=== PATIENT | male | born 1960 | race Caucasian/White ===

== ENCOUNTER → 2018-05-13 | Day surgery (SDC) | payer OTHER ==
[~2018-05-13] MED LIST: AMLODIPINE BESY10 MG PO; ASPIR 8181 MG; BENAZEPRIL HCL10 MG PO; DEXAMETHASONE SOD PHOS INJ 4 MG/ML VIAL ONE; FENTANYL CITRATE/PF 100MCG/2 ML INJ ONE; IOPAMIDOL 610MG/1ML 300 MG/ML VIAL IV ONE; LEVOFLOXACIN 500MG/D5W 100ML 100 ML IV ONE; LIDOCAINE HCL 2% LOCAL INJ 5 ML SDV VIAL INJ ONE; MIDAZOLAM HCL 2 MG/2 ML VIAL ONE; PROPOFOL IV EMULSION 10 MG/ML 20 ML VIAL ONE; SEVOFLURANE INHAL SOLN 250 ML PEN BTL ONE; TAMSULOSIN HCL0.4 MG
--- OUTSIDE RECORDS SUMMARY | 2018-05-13 07:23 | XMS REPORT | Clinical Summary ---
Author Author [facility] Address Unknown Phone Unavailable Care Team Providers Care Worm Raiser Name Role Phone Ja Willard MD PCP Allergies No Known Allergies Current Medications Prescription Sig. Disp. Refills Start End Date Status Date naproxen (NAPROSYN) 500 Take 1 tablet (500 mg 60 tablet 0 04/24/05/24/20 Active MG tablet total) by mouth 2 (two) 18 18 times a day with meals for 30 days. ondansetron (ZOFRAN) 4 MG Take 1 tablet (4 mg 120 tablet 0 04/24/20 05/24/20 Active tablet total) by mouth every 6 18 18 (six) hours for 30 days. traMADol (ULTRAM) 50 mg Take 1 tablet (50 mg 15 tablet 0 04/24/ tablet total) by mouth every 8 18 18 (eight) hours as needed for severe pain for up to 5 days. Active Problems Not on file Encounters Date Type Specialty Care Team Description 05/11/2018 [facility] Radiology Conrado Hurt, Calculus of kidney; Encounter Calculus of ureter 05/11/2018 Ancillary Radiology Conrado Hurt, Calculus of kidney; Orders Calculus of ureter 05/06/2018 Orders Only Procedural Cardiology Cristinao Kate Preop testing (Primary Dx) 04/30/2018 Hospital Radiology Conrado Hurt, Calculus of ureter; Encounter Calculus of kidney 04/30/2018 Ancillary Radiology Conrado Hurt, Calculus of ureter; Orders Calculus of kidney 04/24/2018 Emergency Emergency Medicine Isaias Oh Nephrolithiasis (Primary MD Leonid Dx) 10/17/2017 Hospital Radiology Conrado Hurt, Abdominal pain, left Encounter lower quadrant; Calculus of kidney; Calculus of ureter 10/17/2017 Ancillary Radiology Conrado Hurt, Abdominal pain , left Orders lower quadrant; Calculus of kidney; Calculus of ureter 10/13/2017 Hospital Radiology Conrado Hurt, Uric acid Encounter MD nephrolithiasis; Calculus of ureter 10/13/2017 Ancillary Radiology Conrado Hurt, Uric acid Orders nephrolithiasis; Calculus of ureter 09/11/2017 Hospital Radiology Conrado Hurt, Calculus of kidney; Encounter Calculus of ureter 09/11/2017 Ancillary Radiology Conrado Hurt, Calculus of kidney; Orders Calculus of ureter 08/25/2017 [facility] Radiology Conrado Hurt, Calculus of ureter Encounter MD 08/25/2017 Ancillary Radiology Conrado Hurt, Calculus of ureter Orders MD after 05/12/2017 Social History Tobacco Use Types Packs/Day Years Used Date Former Smoker Smokeless Tobacco: Former User Alcohol Use Drinks/Week oz/Week Comments Yes Sex Assigned at Date Recorded Not on file Last Filed Vital Signs Vital Sign Reading Time Taken Blood Pressure 121/75 04/24/2018 1:29 PM CDT Pulse 68 04/24/2018 1:29 PM CDT Temperature 37.2 C (99 F) 04/24/2018 10:52 AM CDT Respiratory Rate 18 04/24/2018 1:29 PM CDT Oxygen Saturation 96% 04/24/2018 1:29 PM CDT Inhaled Oxygen - - Concentration Weight 86.2 kg (190 lb) 04/24/2018 10:52 AM CDT Height 175.3 cm (5' 9") 04/24/2018 10:52 AM CDT Body Mass Index 28.06 04/24/2018 10:52 AM CDT Plan of Treatment Health Maintenance Due Date Last Done Comments COLON CANCER SCREENING 2009 SHINGRIX VACCINE (#1) 2009 INFLUENZA VACCINE 07/01/2018 Results * XR Abdomen 1 Vw (05/11/2018 11:05 AM) Only the most recent of 6 results within the time period is included. Specimen Performing Laboratory [facility] [address] [place] [address] Narrative XR ABDOMEN 1 VW CLINICAL INDICATION:N20.0 Calculus of kidney, N20.1 Calculus of ureter COMPARISON:April 30, 2018 IMPRESSION: The bowel gas pattern is normal. A previously described stone in the left ureter at the L3 level on CT of March is no longer definitively visualized. There are small stones overlying the left kidney measuring up to 5 mm and a questionable stone in the left kidney measuring 4 to 5 mm. Again identified are calcific densities in the pelvis, 2 of which have been previously described as bladder stones and the others likely relating to phleboliths. [id number] Procedure Note Interface, Radiology Results Incoming - 05/11/2018 2:15 PM CDT XR ABDOMEN 1 VW CLINICAL INDICATION: N20.0 Calculus of kidney, N20.1 Calculus of ureter COMPARISON: April 30, 2018 IMPRESSION: The bowel gas pattern is normal. A previously described stone in the left ureter at the L3 level on CT of March is no longer definitively visualized. There are small stones overlying the left kidney measuring up to 5 mm and a questionable stone in the left kidney measuring 4 to 5 mm. Again identified are calcific densities in the pelvis, 2 of which have been previously described as bladder stones and the others likely relating to phleboliths. [id number] * ECG 12 lead (05/06/2018 11:48 AM) Component Value Ref Range Ventricular rate 62 Atrial rate 62 SD interval 138 QRSD interval 82 QT interval 408 QTC interval 414 P axis 1 55 QRS axis 1 30 T wave axis 32 EKG impression Normal sinus rhythm-Possible Left atrial enlargement-Borderline ECG-No previous ECGs available- Specimen Performing Laboratory [facility] [address] [place] [address] * CT Renal Stone Protocol (04/24/2018 12:12 PM) Specimen Performing Laboratory [facility] [address] [place] [address] Narrative EXAMINATION:CT RENAL STONE PROTOCOL CLINICAL HISTORY:kidney stone TECHNIQUE:Multiple axial images of the abdomen and pelvis were obtained without intravenous administration of iodinated contrast. Sagittal and coronal computerized reformatted images were also obtained. The lack of intravenous contrast reduces the sensitivity of detecting solid organ disease. COMPARISON:KUB from 10/17/2017 FINDINGS: 1.There is an obstructing, 0.6 x 0.6 cm stone within the proximal left ureter (image 95, series 2), resulting in moderate left-sided hydronephrosis. Left-sided perinephric stranding is also seen. No perinephric fluid collections. No air is seen within the collecting system. Multiple other nonobstructing stones are seen within the mid and superior pole calyces of the left kidney. The largest nonobstructing stone measures 0.6 x 0.5 cm within the midpole. The distal left ureter is unremarkable. 2.The bladder is decompressed. 2 other calcifications are seen within the dependent portions the bladder likely representing stones. The largest measures 0.4 cm and is located on the right side of the bladder (image 163, series 2). 3.The right kidney is normal in morphology. The right ureter is unremarkable. No right-sided hydronephrosis. There is a nonobstructing renal stone within the right collecting system within a midpole calyx measuring 0.6 cm in size. 4.The prostate is unremarkable and contains dystrophic calcification. The prostate measures 4.2 x 4.9 cm. 5.The lung bases are clear. The cardiac size is normal. No pericardial effusion. Mild calcification of the aortic valve leaflets is noted. 6.Noncontrast evaluation of the liver demonstrates punctate foci of decreased attenuation. The largest is within the right lobe the liver measuring 0.9 cm, and likely represent cysts. No intrahepatic biliary duct dilatation. 7.A layering gallstone is seen within the gallbladder with some layering sludge. No pericholecystic fluid or gallbladder wall thickening. The common bile duct is unremarkable. 8.The pancreas, spleen, and adrenals are unremarkable. 9.No dilated loops of large or small bowel. No intraperitoneal free air or free fluid. Diverticulosis is seen within the sigmoid colon without evidence of diverticulitis. The appendix is normal. 10.Nonspecific groundglass opacity is seen within the mesenteric fat with some associated nonspecific, likely reactive lymph nodes. Findings most likely represent mesenteric panniculitis or edema. 11.The abdominal aorta is normal in caliber. 12.No abdominal or pelvic lymphadenopathy. 13.The bones are within normal limits. IMPRESSION: 1.Obstructing 0.6 cm renal stone within the proximal left ureter resulting in moderate left-sided hydronephrosis. 2.Other incidental findings as above. [facility]-[id number] Procedure Note Hm Interface, Radiology Results Incoming - 04/24/2018 12:32 PM CDT EXAMINATION: CT RENAL STONE PROTOCOL CLINICAL HISTORY: kidney stone TECHNIQUE: Multiple axial images of the abdomen and pelvis were obtained without intravenous administration of iodinated contrast. Sagittal and coronal computerized reformatted images were also obtained. The lack of intravenous contrast reduces the sensitivity of detecting solid organ disease. COMPARISON: KUB from 10/17/2017 FINDINGS: 1. There is an obstructing, 0.6 x 0.6 cm stone within the proximal left ureter (image 95, series 2), resulting in moderate left-sided hydronephrosis. Left-sided perinephric stranding is also seen. No perinephric fluid collections. No air is seen within the collecting system. Multiple other nonobstructing stones are seen within the mid and superior pole calyces of the left kidney. The largest nonobstructing stone measures 0.6 x 0.5 cm within the midpole. The distal left ureter is unremarkable. 2. The bladder is decompressed. 2 other calcifications are seen within the dependent portions the bladder likely representing stones. The largest measures 0.4 cm and is located on the right side of the bladder (image 163, series 2). 3. The right kidney is normal in morphology. The right ureter is unremarkable. No right-sided hydronephrosis. There is a nonobstructing renal stone within the right collecting system within a midpole calyx measuring 0.6 cm in size. 4. The prostate is unremarkable and contains dystrophic calcification. The prostate measures 4.2 x 4.9 cm. 5. The lung bases are clear. The cardiac size is normal. No pericardial effusion. Mild calcification of the aortic valve leaflets is noted. 6. Noncontrast evaluation of the liver demonstrates punctate foci of decreased attenuation. The largest is within the right lobe the liver measuring 0.9 cm, and likely represent cysts. No intrahepatic biliary duct dilatation. 7. A layering gallstone is seen within the gallbladder with some layering sludge. No pericholecystic fluid or gallbladder wall thickening. The common bile duct is unremarkable. 8. The pancreas, spleen, and adrenals are unremarkable. 9. No dilated loops of large or small bowel. No intraperitoneal free air or free fluid. Diverticulosis is seen within the sigmoid colon without evidence of diverticulitis. The appendix is normal. 10. Nonspecific groundglass opacity is seen within the mesenteric fat with some associated nonspecific, likely reactive lymph nodes. Findings most likely represent mesenteric panniculitis or edema. 11. The abdominal aorta is normal in caliber. 12. No abdominal or pelvic lymphadenopathy. 13. The bones are within normal limits. IMPRESSION: 1. Obstructing 0.6 cm renal stone within the proximal left ureter resulting in moderate left-sided hydronephrosis. 2. Other incidental findings as above. [facility]-[id number] * Urinalysis screen and microscopy, with reflex to culture (04/24/2018 11:08 AM) Component Value Ref Range Specimen site Clean catch Color, UA Yellow Appearance, UA Clear Specific gravity, UA 1.023 1.001 - 1.035 pH, UA 5.0 5.0 - 8.5 Protein, UA 1+ (A) Negative Glucose, UA Negative Negative Ketones, UA Negative Negative Bilirubin, UA Negative Negative Blood, UA Moderate (A) Negative Nitrite, UA Negative Negative Urobilinogen, UA Negative <2.0 Leukocyte esterase, UA Negative Negative Epithelial cells, UA Few /HPF WBC, UA 12 (H) 0 - 1 /HPF RBC, UA 17 (H) 0 - 5 /HPF Bacteria, UA None seen None seen Yeast, UA None seen Yeast with pseudohyphae, None seen UA Specimen Performing Laboratory Urine [facility] [place] [facility] DEPARTMENT OF PATHOLOGY AND GENOMIC MEDICINE [address] [place] [address] * Gram stain (04/24/2018 11:08 AM) Component Value Ref Range Gram stain result No WBC's or organisms seen. Comment: Specimen Information Specimen Source: Urine Specimen Site: Clean catch Specimen Performing Laboratory Urine [facility] DEPARTMENT OF PATHOLOGY AND GENOMIC MEDICINE [address] [place] [id number] * Urine culture (04/24/2018 11:08 AM) Component Value Ref Range Urine culture isolate Mixed Gram positive charo 10-1 cfu/ml (A) Comment: Specimen Information Specimen Source: Urine Specimen Site: Clean catch Specimen Performing Laboratory Urine [facility] DEPARTMENT OF PATHOLOGY AND GENOMIC MEDICINE [address] [place] [id number] after 05/12/2017 Insurance Payer Benefit Subscriber ID Type Phone Address Plan / Group [facility] xxxxxxxxx PPO CHRIS/ALEX EN RULE
--- NOTE | 2018-05-13 11:24 | Operative Report ---
DATE OF PROCEDURE: May 13, 2018 PREOPERATIVE DIAGNOSES 1. Left upper third ureteral calculus, 6 x 6 mm. 2. Left hydronephrosis. 3. Right renal calculus, lower pole eligio, 6 x 6 mm. POSTOPERATIVE DIAGNOSES 1. Left upper third ureteral calculus, 6 x 6 mm. 2. Left hydronephrosis. 3. Right renal calculus, lower pole eligio, 6 x 6 mm. 4. Bladder calculi times 2. OPERATION 1. Cystourethroscopy. 2. Vesicolitholapaxy for the 2 bladder calculi. 3. Left double-J stent placement, 6 x 28 cm. 4. Left upper third ureteral extracorporeal shock-wave lithotripsy for the 2 calculi, complete pulverization. LIFE SCIENCES TEACHER: Dr. Mc ANESTHETIC: General. INDICATIONS: Mr. Marie is a 57-year-old male who presented with chief complaint of acute onset of severe pain on the left side. Workup showed that he had 2 left upper third ureteral calculi with proximal hydronephrosis. He was also noted to have a right renal calculus, which is not symptomatic. PROCEDURE IN DETAIL: This patient was placed on the table in the lithotomy position and was prepped and draped in a sterile manner after satisfactory anesthesia. A #23-Stateless cystoscope was used, and cystourethroscopy was performed. It was noted that there were 2 bladder calculi. Vesicolitholapaxy was done, and the 2 calculi were removed. A 0.38 flexible-tip Glidewire was then passed through the working channel of the cystoscope, through the left ureteral orifice. Under direct vision and fluoroscopic control, it was passed all the way up, bypassing the stone, into the renal pelvis on the left side. A 6-Stateless x 28-cm double-J stent was placed over the guidewire through the working channel of the cystoscope, through the left ureteral orifice, and then passed all the way up to the left renal pelvis, leaving the upper end of the stent in the renal pelvis and the lower end of the stent in the bladder. The bladder was drained and the cystoscope removed. This patient was placed on the table in the supine position. The left ureteral calculi were brought into position between F1 and F2 of the fluoroscopic monitors. The lithotripsy was then started, starting at 2 kV and slowly and gradually increased to 6 kV. Observation of the stone pulverization was done at 200 to 250 shocks intermittently. At 3,000 shocks, it was felt that the stones in the upper ureter have completely pulverized. The ESWL was stopped. The patient tolerated the procedure well and was taken to the recovery room in satisfactory condition. Plan for this patient is to return to the office in 2 weeks when at that time a CT scan without contrast material will be obtained to assess the renal calculi, ureteral calculi, etc. Discharge medications were Cipro 500 mg 1 twice a day, Ultracet tablet 1 every 6 hours p.r.n., oxybutynin 5 mg 1 twice a day. He was also instructed on straining his urine. Job#: [id number]
== END | disposition home or self-care (01) ==
LOC: OR 07:20
PROVIDERS: ATTEND Specialist
DX: N13.2 Hydronephrosis with renal and ureteral calculous obstruction (principal); I10 Essential (primary) hypertension
CPT/HCPCS: 50590; 88300; C2617; J1100; J1956; J2001; J2250